=== PATIENT | male | born 1985 | race Caucasian/White ===

== ENCOUNTER 2016-10-30 15:59 | Emergency (ER) | payer OTHER ==
[~2016-10-30] VITALS: Ht 177.8 cm; Wt 81.8 kg
[2016-10-30 16:02] VITALS: BP 127/90; PULSE 101; RESP 16; O2SAT 100
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
[2016-10-30] MEDS ORDERED: HYDROmorphone 1 mg/mL Inj IM ONE (17:40)
[2016-10-30] MEDS ORDERED: 0.9% Sodium Chloride 1,000 ML IV ONE (18:16)
[2016-10-30] MEDS ORDERED: cefTRIAXone Inj 2,000 MG in Dextrose 5% Minibag Plus 50 ML IV ONE (18:20)
[2016-10-30] MEDS ORDERED: HYDROmorphone 1 mg/mL Inj IVPUSH PRN (18:20)
[2016-10-30] MEDS ORDERED: CEPH500T PO (19:18)
[2016-10-30 19:32] VITALS: BP 124/77; PULSE 88; RESP 16; O2SAT 97
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
== END 2016-10-30 19:33 | disposition home or self-care (01) ==
LOC: SED 15:59
DX: M25.571 Pain in right ankle and joints of right foot (principal); Z98.890 Other specified postprocedural states
CPT/HCPCS: 73610; 96365; 96372; 99284; J0696; J1170